=== PATIENT | female | born 1975 | race African-American/Black ===

== ENCOUNTER 2020-03-16 18:31 | Emergency (ER) | payer SELFPAY ==
[~2020-03-16] VITALS: Ht 157.5 cm; Wt 105.1 kg
[2020-03-16] MEDS ORDERED: IV DEXTROSE 10% 500 ML IV ONE (18:45)
[2020-03-16 20:17] LABS: CALCIUM 9.2 mg/dL (8.5-10.1); CREATININE 1.1 mg/dL (0.6-1.0); POTASSIUM 3.7 mmol/L (3.5-5.1)
[2020-03-16 20:22] LABS: ALBUMIN 3.8 g/dL (3.4-5.0); ALBUMIN/GLOBULIN RATIO 0.9 (1.0-1.7); TOTAL BILIRUBIN 0.5 mg/dL (0.2-1.0)
[2020-03-16 20:27] LABS: BASO % 0 % (0-3); EOS # 0.1 x10^3/uL (0.0-0.7); EOS % 1 % (0-3); HEMATOCRIT 44.1 % (36.0-47.0); HEMOGLOBIN 14.8 g/dL (12.0-15.5); LYMPH # 1.5 x10^3/uL (1.0-4.8); LYMPH % 10 % (24-48); MEAN CORPUSCULAR HEMOGLOBIN 30 pg (25-35); MEAN CORPUSCULAR HGB CONC 34 g/dL (31-37); MEAN CORPUSCULAR VOLUME 89 fL (79-100); MONO # 0.8 x10^3/uL (0.0-1.1); MONO % 5 % (0-9); NEUT # 13.5 x10^3uL (1.8-7.7); NEUT % 85 % (31-73); PLATELET COUNT 320 x10^3/uL (140-400); RED BLOOD COUNT 4.97 x10^6/uL (3.50-5.40); RED CELL DISTRIBUTION WIDTH 12.9 % (11.5-14.5); WHITE BLOOD COUNT 15.9 x10^3/uL (4.0-11.0)
--- NOTE | 2020-03-16 20:33 | PHYS DOC ---
Past History Past Medical History: Diabetes, High Cholesterol, Hypertension Past Surgical History: Cholecystectomy, Hysterectomy Alcohol Use: Occasionally Adult General Chief Complaint Chief Complaint: HYPOGLYCEMIA HPI HPI Patient is a 44 year old female who presents with altered mental status. The patient was brought to the emergency department by EMS. EMS was called by the patient's son after she was found to be minimally responsive. When they checked the patient's blood sugar it was found to be 20. They were unable to establish IV access but did administer IM glucagon to the patient prior to arrival. The patient remains altered and does not provide history at this time. Patient reportedly on insulin for treatment of her diabetes. No reported fall or known injury. Review of Systems Review of Systems Unable to obtain from patient due to altered mental status All other systems were reviewed and found to be within normal limits, except as documented in this note. Current Medications Current Medications Current Medications Medications (Trade) Dose Ordered Sig/Carmen Start Time Stop Time Status Last Admin Dose Admin Dextrose 500 ml @ 0 mls/hr 1X ONCE 03/16/20 18:45 03/16/20 19:07 DC Allergies Allergies Allergies Coded Allergies Type Severity Reaction Last Updated Verified shellfish derived Allergy Unknown 03/16/20 Yes Physical Exam Physical Exam Constitutional: Lethargic, does not respond to questions, localizes painful stimulus. [] HENT: Normocephalic, atraumatic, bilateral external ears normal, oropharynx moist, no oral exudates, nose normal. [] Eyes: PERRLA, EOMI, conjunctiva normal, no discharge. [] Neck: Normal range of motion, no tenderness, supple, no stridor. [] Cardiovascular:Heart rate regular rhythm, no murmur [] Lungs & Thorax: Bilateral breath sounds clear to auscultation [] Abdomen: Bowel sounds normal, soft, no tenderness, no masses, no pulsatile masses. [] Skin: Warm, dry, no erythema, no rash. [] Back: No tenderness, no CVA tenderness. [] Extremities: No deformity, no cyanosis, no clubbing, no edema. [] Neurologic: Lethargic, localizes painful stimulus, nonverbal. [] Current Patient Data Vital Signs Vital Signs Date Time Temp Pulse Resp B/P (MAP) Pulse Ox O2 Delivery O2 Flow Rate FiO2 03/16/20 18:40 97.0 85 30 157/82 (107) 100 Lab Results Laboratory Tests Test 03/16/20 18:35 03/16/20 19:27 03/16/20 19:48 Glucose (Fingerstick) 59 mg/dL (70-99) L 116 mg/dL (70-99) H White Blood Count 15.9 x10^3/uL (4.0-11.0) H Red Blood Count 4.97 x10^6/uL (3.50-5.40) Hemoglobin 14.8 g/dL (12.0-15.5) Hematocrit 44.1 % (36.0-47.0) Mean Corpuscular Volume 89 fL (79-100) Mean Corpuscular Hemoglobin 30 pg (25-35) Mean Corpuscular Hemoglobin Concent 34 g/dL (31-37) Red Cell Distribution Width 12.9 % (11.5-14.5) Platelet Count 320 x10^3/uL (140-400) Neutrophils (%) (Auto) 85 % (31-73) H Lymphocytes (%) (Auto) 10 % (24-48) L Monocytes (%) (Auto) 5 % (0-9) Eosinophils (%) (Auto) 1 % (0-3) Basophils (%) (Auto) 0 % (0-3) Neutrophils # (Auto) 13.5 x10^3uL (1.8-7.7) H Lymphocytes # (Auto) 1.5 x10^3/uL (1.0-4.8) Monocytes # (Auto) 0.8 x10^3/uL (0.0-1.1) Eosinophils # (Auto) 0.1 x10^3/uL (0.0-0.7) Basophils # (Auto) 0.0 x10^3/uL (0.0-0.2) Sodium Level 131 mmol/L (136-145) L Potassium Level 3.7 mmol/L (3.5-5.1) Chloride Level 98 mmol/L (98-107) Carbon Dioxide Level 21 mmol/L (21-32) Anion Gap 12 (6-14) Blood Urea Nitrogen 13 mg/dL (7-20) Creatinine 1.1 mg/dL (0.6-1.0) H Estimated GFR (Cockcroft-Gault) 54.0 BUN/Creatinine Ratio 12 (6-20) Glucose Level 220 mg/dL (70-99) H Calcium Level 9.2 mg/dL (8.5-10.1) Total Bilirubin 0.5 mg/dL (0.2-1.0) Aspartate Amino Transferase (AST) 22 U/L (15-37) Alanine Aminotransferase (ALT) 21 U/L (14-59) Alkaline Phosphatase 66 U/L (46-116) Total Protein 8.0 g/dL (6.4-8.2) Albumin 3.8 g/dL (3.4-5.0) Albumin/Globulin Ratio 0.9 (1.0-1.7) L EKG EKG Interpreted by me: Heart rate 76, normal sinus rhythm, normal intervals, normal axis, no acute ST/T wave abnormalities present [] Radiology/Procedures Radiology/Procedures Not performed [] Course & Med Decision Making Course & Med Decision Making To 116. Pertinent Labs and Imaging studies reviewed. (See chart for details) IV access was obtained in the emergency department. Patient was started on D10 bolus. After initiation of D10 bolus, the patient's mental status significantly improved and blood sugar was found to improve to 116. The patient denies any pain, headache, or recent illness. She does state that she takes insulin for her diabetes and does note that she has been traveling recently. She states that she has not been eating regular meals over the last 2 days and this could have caused her blood sugar to drop. The patient was given a sandwich tray in the emergency department which she was able to finish. The patient now denies any complaints and blood sugars have stabilized above 200. Advised patient to continue to monitor blood sugars. Advised to eat regular meals and follow-up with your primary doctor in the next 2 days for reevaluation. Advised return to the emergency department for any worsening symptoms. Patient voiced understanding and agreement with treatment plan. IValeria MD, wore eye protection, N 95 mask, and gloves during this patient encounter. Critical CARE time excluding procedures: 40 minutes [] Dragon Disclaimer Dragon Disclaimer This electronic medical record was generated, in whole or in part, using a voice recognition dictation system. Departure Departure: Impression: Primary Impression: Hypoglycemia Additional Impression: H/O insulin dependent diabetes mellitus Disposition: HOME/RESIDENCE PRIOR TO ADM Condition: IMPROVED Patient Instructions: Hypoglycemia (Low Blood Sugar) Additional Instructions: Follow-up with your primary doctor in the next 2 days for reevaluation. Return to the emergency department for any worsening symptoms. Justification of Admission: Justification of Admission: Justification of Admission Dx: N/A Problem Qualifiers VALERIA FLOOD MD Mar 16, 2020 20:33
--- NOTE | 2020-03-16 21:46 | EKG ---
[address] [address] Test Date: 2020-03-16 Test Time: 19:19:27 Pat Name: JOSE MARIA MATUTE Department: Room: Gender: F [employer] Reseller: GENNARO : 1975 Requested By: VALERIA FLOOD Order Number: [id number] Reading MD: Tiago Bolivar Measurements Intervals [place] Rate: 76 P: 59 [place]: 164 QRS: 43 QRSD: 80 T: 56 QT: 406 QTc: 461 Interpretive Statements SINUS RHYTHM QRS(T) CONTOUR ABNORMALITY CONSISTENT WITH ANTEROSEPTAL INFARCT PROBABLY OLD ABNORMAL ECG RI6.02 No previous ECG available for comparison Electronically Signed On 03-18-2020 12:28:13 CDT by Tiago Bolivar
[2020-03-16 21:51] LABS: BILIRUBIN,URINE NEG (NEG); CLARITY,URINE CLEAR; COLOR,URINE STRAW; GLUCOSE,URINE 500 mg/dL (NEG)
[2020-03-16 21:52] LABS: BACTERIA,URINE 0 /HPF (0-FEW); NITRITE,URINE NEG (NEG); RBC,URINE 0 /HPF (0-2); SQUAMOUS EPITHELIAL CELL,UR OCC /LPF; UROBILINOGEN,URINE 0.2 mg/dL (0.2 mg/dL); WBC,URINE 0 /HPF (0-4)
[2020-03-16 22:16] VITALS: BP 158/92
== END 2020-03-16 22:23 | disposition home or self-care (01) ==
LOC: ER 18:31
DX: E11.649 Type 2 diabetes mellitus with hypoglycemia without coma (principal); E78.00 Pure hypercholesterolemia, unspecified; I10 Essential (primary) hypertension; Z91.013 Allergy to seafood
CPT/HCPCS: 36415; 80053; 81001; 82947; 85025; 93005; 96365; 96366; 99284; J7060